=== PATIENT | female | born 1990 | race Caucasian/White ===

== ENCOUNTER 2021-09-11 09:45 | Outpatient (CLI) | payer BC, OTHER ==
[2021-09-11 11:05] LABS: BASOPHILS % (AUTO) 0.3 % (0.0-2.0); EOSINOPHILS # (AUTO) 0.2 K/uL (0.0-0.4); EOSINOPHILS % (AUTO) 1.6 % (0.0-4.0); LYMPHOCYTES # (AUTO) 2.3 K/uL (1.0-5.5); LYMPHOCYTES % (AUTO) 20.7 % (20.5-51.5); MEAN CORPUSCULAR HEMOGLOBIN 31 pg (27-31); MEAN CORPUSCULAR HGB CONC 35 % (32-36); MEAN CORPUSCULAR VOLUME 90 fL (79.0-98.0); MONOCYTES # (AUTO) 0.6 K/uL (0.0-1.0); MONOCYTES % (AUTO) 5.7 % (1.7-9.3); NEUTROPHILS # (AUTO) 7.8 K/uL (1.8-7.7); NEUTROPHILS % (AUTO) 71.7 % (40.0-70.0); PLATELET COUNT (AUTO) 314 K/uL (130-430); RED BLOOD CELL COUNT(AUTO) 4.44 MIL/uL (4.2-6.2); RED CELL DISTRIBUTION WIDTH 12.9 % (9.0-15.0); WHITE BLOOD COUNT (AUTO) 10.9 K/uL (4.8-10.8)
[2021-09-11 11:29] LABS: ALBUMIN 3.8 g/dL (3.4-4.8); CALCIUM 9.1 mg/dL (8.4-11.0); CREATININE 0.74 mg/dL (0.55-1.30); FREE T4 (FREE THYROXINE) 0.9 ng/dl (0.8-1.5); POTASSIUM 4.4 mmol/L (3.5-5.1); THYROID STIMULATING HORMONE 2.96 uIu/mL (0.36-3.74); TOTAL BILIRUBIN 0.6 mg/dL (0.0-1.0)
[2021-09-12 07:07] LABS: HEMOGLOBIN A1C 5.2 % (4.8-5.6)
== END 2021-09-11 20:06 | disposition home or self-care (01) ==
LOC: SUS 09:45
PROVIDERS: ATTEND Internal Medicine
DX: E04.9 Nontoxic goiter, unspecified (principal); E56.9 Vitamin deficiency, unspecified; E55.9 Vitamin D deficiency, unspecified; R59.9 Enlarged lymph nodes, unspecified
CPT/HCPCS: 36415; 76536-TC; 80053; 80061; 82306; 82607; 83036; 84439; 84443; 85025